=== PATIENT | male | born 2000 | race African-American/Black ===

== ENCOUNTER 2019-10-04 23:42 | Emergency (ER) | payer BC ==
[~2019-10-04] VITALS: Ht 180.3 cm; Wt 69.4 kg
[2019-10-04 23:49] VITALS: Ht 180.3 cm; Wt 69.4 kg
[2019-10-05 01:50] VITALS: BP 126/68
== END 2019-10-05 01:50 | disposition home or self-care (01) ==
LOC: ED 23:42
DX: M25.532 Pain in left wrist (principal); X50.9XXA Other and unspecified overexertion or strenuous movements or postures, initial encounter; Y93.89 Activity, other specified; Y92.89 Other specified places as the place of occurrence of the external cause; Y99.8 Other external cause status